=== PATIENT | male | born 1980 | race Caucasian/White ===

== ENCOUNTER 2017-12-20 14:17 | Emergency (ER) | payer OTHER ==
[2017-12-20 14:50] VITALS: O2SAT 99
--- NOTE | 2017-12-20 16:04 | ED PDOC ---
HPI: Allergic Reaction Time Seen by Provider: 12/20/17 15:05 Chief Complaint (Nursing): Allergic Reaction Chief Complaint (Provider): Allergic Reaction History Per: Patient History/Exam Limitations: no limitations Onset/Duration Of Symptoms: Hrs Current Symptoms Are (Timing): Still Present Associated Symptoms: Skin Rash Additional Complaint(s): 37 year old male presents to the ED complaining of an itchy rash, onset last night. Patient states the rash started after eating sushi and has spread all over his body. Patient reports he has had sushi in the past but has never had a rash. Denies throat swelling, shortness of breath, and taking medication to relieve symptoms. PMD: Blane [place] Past Medical History Reviewed: Historical Data, Nursing Documentation, Vital Signs Vital Signs: Last Vital Signs Temp 97.7 F 12/20/17 14:46 Pulse 91 H 12/20/17 14:46 Resp 18 12/20/17 14:46 BP 133/74 12/20/17 14:46 Pulse Ox 99 12/20/17 14:46 - Medical History PMH: No Chronic Diseases - Surgical History Surgical History: No Surg Hx - Family History Family History: States: Unknown Family Hx - Social History Current smoker - smoking cessation education provided: No Alcohol: None Drugs: Denies - Home Medications Home Medications: Ambulatory Orders Medication Instructions Recorded DiphenhydrAMINE [Benadryl] 50 mg PO Q6H 3 Days #20 cap 12/20/17 Famotidine [Pepcid] 20 mg PO BID 3 Days #20 tab 12/20/17 Prednisone 50 mg PO DAILY #4 tab 12/20/17 - Allergies Allergies/Adverse Reactions: Allergies Allergy/AdvReac Type Severity Reaction Status Date / Time No Known Allergies Allergy Verified 12/20/17 14:46 Review of Systems ROS Statement: Except As Marked, All Systems Reviewed And Found Negative ENT: Negative for: Throat Pain Respiratory: Negative for: Shortness of Breath Skin: Positive for: Rash (itchy rash all over body) Physical Exam - Reviewed Nursing Documentation Reviewed: Yes Vital Signs Reviewed: Yes - Physical Exam Appears: Positive for: Non-toxic (speaking full sentences) Head Exam: Positive for: ATRAUMATIC, NORMOCEPHALIC Skin: Positive for: Rash (generalized erythematous maculour rash, blanching, urticaria on extremities; no induration, no lesions) Eye Exam: Positive for: Normal appearance, EOMI, PERRL ENT: Positive for: Normal ENT Inspection, Pharynx Is (clear), Other (no drooling ; uvula midline) Neck: Positive for: Normal, Painless ROM, Supple Cardiovascular/Chest: Positive for: Regular Rate, Rhythm. Negative for: Murmur Respiratory: Positive for: Normal Breath Sounds. Negative for: Respiratory Distress Gastrointestinal/Abdominal: Positive for: Normal Exam, Soft. Negative for: Tenderness Back: Positive for: Normal Inspection. Negative for: L CVA Tenderness, R CVA Tenderness, Vertebral Tenderness Extremity: Positive for: Normal ROM. Negative for: Pedal Edema, Deformity Neurologic/Psych: Positive for: Alert, Oriented - ECG O2 Sat by Pulse Oximetry: 99 (RA) Pulse Ox Interpretation: Normal - Progress ED Course And Treament: Time: 1509 Impression: Allergic reaction; Urticaria Plan: -- Pepcid 40 mg PO -- PredniSONE 50 mg PO Could not administer Benadryl because driving home. Scribe Attestation: Documented by Cristal Dc, acting as a scribe for Dr. Pauline Watson. Provider Scribe Attestation: All medical record entries made by the Scribe were at my direction and personally dictated by me. I have reviewed the chart and agree that the record accurately reflects my personal performance of the history, physical exam, medical decision making, and the department course for this patient. I have also personally directed, reviewed and agree with the discharge instructions and disposition. Disposition - Clinical Impression Clinical Impression: Acute allergic reaction - Disposition Disposition: Routine/Home Disposition Time: 16:05 Condition: IMPROVED Additional Instructions: FOLLOW-UP WITH PMD WITHIN 2 DAYS FOR REEVALUATION. Prescriptions: DiphenhydrAMINE [Benadryl] 50 mg PO Q6H 3 Days #20 cap Famotidine [Pepcid] 20 mg PO BID 3 Days #20 tab Prednisone 50 mg PO DAILY #4 tab Instructions: Skin Rash Forms: [employer] ([place]ian)
[2017-12-20 20:09] VITALS: BP 120/68; PULSE 78; RESP 17; TEMP 98
== END 2017-12-20 16:10 | disposition home or self-care (01) ==
LOC: H.ER 14:17
DX: L50.0 Allergic urticaria (principal)